=== PATIENT | male | born 2000 | race Two or more races ===

== ENCOUNTER 2021-06-13 15:16 | Emergency (ER) | payer OTHER, SELFPAY ==
--- NOTE | ~2021-06-13 | XR_ITS ---
EXAMINATION: XR ELBOW, RIGHT CLINICAL INFORMATION: Elbow pain COMPARISON: None TECHNIQUE: AP, lateral, and oblique views of the right elbow. FINDINGS: There is no evidence of acute fracture or dislocation of the right elbow. No elbow effusion is identified. Joint spaces are maintained. No evidence of calcific epicondylitis. XR/XR elbow RT min 3V IMPRESSION: No bony abnormality or effusion of the right elbow identified.
[2021-06-13 15:31] VITALS: BP 139/83; PULSE 67; RESP 16; TEMP 36.4; O2SAT 98; BMI 21.1
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
== END 2021-06-13 16:53 | disposition home or self-care (01) ==
PROVIDERS: Emergency Provider Emergency Medicine
DX: Z04.1 Encounter for examination and observation following transport accident (principal); M25.521 Pain in right elbow
CPT/HCPCS: 73080; 99283

== ENCOUNTER → 2023-03-11 14:10 | Outpatient (BNVA) | payer OTHER, SELFPAY | PROVIDERS: Visit Provider Physician Assistant | DX: Z13.89 Encounter for screening for other disorder (principal) | CPT/HCPCS: 99203 ==

== ENCOUNTER → 2023-07-29 14:28 | Outpatient (BNVA) | payer OTHER, SELFPAY | DX: Z13.89 Encounter for screening for other disorder (principal) | CPT/HCPCS: 99204 ==

== ENCOUNTER → 2023-07-31 09:49 | Outpatient (BNVA) | payer OTHER, SELFPAY | PROVIDERS: Visit Provider Physician Assistant | DX: Z13.89 Encounter for screening for other disorder (principal) | CPT/HCPCS: 99213 ==

== ENCOUNTER 2023-10-14 08:48 | Outpatient (AMB) | payer OTHER, SELFPAY ==
--- NOTE | 2023-10-14 09:01 | MHC.OFFWIV ---
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 He reports he woke up today with cough and nasal congestion. He also reports body aches, and an episode this morning of both diarrhea and vomiting. He reports his father also has similar symptoms, and his brother recently tested positive for COVID. He denies any respiratory distress. Review of Systems Const All systems reviewed & are unremarkable except as noted in HPI and below Physical Exam Vital Signs: Last Vital Signs Temp 98.1 F 10/14/23 09:02 Pulse 96 10/14/23 09:02 BP 126/80 10/14/23 09:02 Pulse Ox 99 10/14/23 09:02 Oxygen Delivery Method Room Air 10/14/23 09:02 BMI result Body Mass Index 20.6 Const General: cooperative and no acute distress Nutritional Appearance: average body habitus HEENT Head: Yes normal to inspection Ears: hearing grossly normal bilaterally General nose exam: Normal external nose present Throat: Yes posterior oropharynx normal Neck Neck: Yes no lymphadenopathy Resp Effort & Inspection: normal respiratory effort Auscultation: clear to auscultation bilaterally Cardio Palpation: normal PMI Rate: regular rate Rhythm: regular rhythm GI Inspection: Yes normal to inspection Palpation (GI): Soft to palpation (nontender) Skin General skin exam: no rashes or lesions noted Extrem General: Yes capillary refill normal and Yes no clubbing, cyanosis or edema Psych Appearance: grossly normal Mental Status: mental status grossly normal Speech and movement: Normal speech and movement present Assessment & Plan Assessment & Plan (1) Upper respiratory infection: Code(s): J06.9 - Acute upper respiratory infection, unspecified Qualifiers: URI type: unspecified viral URI Qualified Code(s): J06.9 - Acute upper respiratory infection, unspecified Plan: Patient's symptoms are consistent with viral illness. Had close known exposure to his brother who actively has COVID. Viral swab for COVID/flu/RSV was obtained, and patient made aware that he will be notified of these results once these are available. We discussed conservative measures and supportive treatment including [id number] Tylenol, Motrin, cold/flu products, as needed for symptoms management. Advised increased hydration and advancing diet as tolerated. If he develops worsening or concerning symptoms such as shortness of breath, he should return to the clinic for further evaluation. He verbalizes understanding and agrees to plan. Orders: Orders SARS-CoV2/FLU/RSV Today J06.9 - Acute upper respiratory infection, unspecified Coding Level of Care Code Est Pt Level 3 (71791) Diagnoses Viral upper respiratory tract infection J06.9 URI type: unspecified viral URI
[2023-10-14 09:02] VITALS: BP 126/80; PULSE 96; TEMP 36.7; O2SAT 99; BMI 20.6
== END 2023-10-14 09:32 | disposition home or self-care (01) ==
PROVIDERS: Visit Provider Nurse Practitioner Family
DX: J06.9 Acute upper respiratory infection, unspecified (principal)
CPT/HCPCS: 99213

== ENCOUNTER 2023-10-14 09:24 | Outpatient (REF) | payer OTHER, SELFPAY ==
[2023-10-14 12:25] LABS: Influenza A PCR NEGATIVE (Negative); Influenza B PCR NEGATIVE (Negative); Resp Syncy Virus RNA Qual PCR NEGATIVE (Negative); SARS COV2 PCR INHOUSE NEGATIVE (Negative)
== END 2023-10-14 09:25 | disposition home or self-care (01) ==
LOC: HO.LAB 09:24
PROVIDERS: Visit Provider Nurse Practitioner Family
DX: J06.9 Acute upper respiratory infection, unspecified (principal); Z11.52 Encounter for screening for COVID-19
CPT/HCPCS: 0241U